=== PATIENT | male | born 1960 | race Caucasian/White ===

== ENCOUNTER → 2016-11-15 | Outpatient (CLI) | payer OTHER | LOC: FIMAGING 12:38 | DX: M25.532 Pain in left wrist (principal) ==

== ENCOUNTER → 2017-10-31 | Outpatient (CLI) | payer OTHER | LOC: BHFA 09:15 | PROVIDERS: ATTEND Internal Medicine Cardiovascular Disease | DX: I50.9 Heart failure, unspecified (principal) ==

== ENCOUNTER 2018-07-03 14:20 | Emergency (ER) | payer OTHER ==
[2018-07-03] MEDS ORDERED: SILVER NITRATE APPLICATOR 1 APPL TP ONE ×2 (14:46→14:55)
--- NOTE | 2018-07-03 14:46 | EDPHY ---
H & P Stated Complaint: CHIN WOUND/ ANTICOAGULATED Time Seen by Provider: 07/03/18 14:42 HPI/ROS: HPI: This is a 58-year-old male who presents with Chief Complaint: CHIN WOUND/ ANTICOAGULATED Location: Left side of chin Quality: Bleeding Duration: 2 and 0.5 hr Signs and Symptoms: no radiation, no numbness, no weakness, no tingling, no incontinence, no decreased range of motion, no swelling, no pain, no fever Timing: Acute Severity: Mild Context: Patient has a history of atrial fibrillation and takes Coumadin, presents with shaving in the shower when he accidentally nicked the left side of his chin. He reports that it has continued to bleed for the last 2 and 0.5 hr despite direct pressure. INR last week was 3.0. Patient asked to not have his INR checked again as he is scheduled to have it checked in 2 days. Denies LOC/head injury/neck pain/dizziness/nausea/vomiting/amnesia/shortness of breath/ chest pain/palpitations. Modifying Factors: Direct pressure no relief Comment: ROS: A comprehensive 10 system review of systems is otherwise negative aside from elements mentioned in the history of present illness. MEDICAL/SURGICAL/SOCIAL HISTORY: Medical history: CHF, DIABETES, A-FIB, BACK FX, SHARON-BIPAP at home, HTN, high cholesterol Surgical history: Denies Social history: Nonsmoker. CONSTITUTIONAL: Morbidly obese, white male, awake and alert, no obvious distress HEENT: normocephalic. 1/8 cm superficial cut on left side of chin that is oozing bright red blood. NECK: supple EXTREMITIES: 2/2 pulses, strength 5/5, no deformities, no clubbing, no cyanosis or edema. NEUROLOGICAL: no focal neuro deficits. GCS 15. Light touch sensation intact. SKIN: Warm and dry, no erythema. no rash. Good capillary refill. Source: Patient Exam Limitations: No limitations - Personal History Current Tetanus Diphtheria and Acellular Pertussis (TDAP): Yes Tetanus Vaccine Date: within 10 years - Medical/Surgical History Hx Asthma: Yes Hx Chronic Respiratory Disease: Yes Hx Diabetes: Yes Hx Cardiac Disease: Yes Hx Renal Disease: No Hx Cirrhosis: No Hx Alcoholism: No Hx HIV/AIDS: No Hx Splenectomy or Spleen Trauma: No Other PMH: CHF, DIABETES, A-FIB, BACK FX, SHARON-BIPAP at home, HTN, high cholesterol - Social History Smoking Status: Former smoker Constitutional: Initial Vital Signs Temperature (C) 37.1 C 07/03/18 14:24 Heart Rate 67 07/03/18 14:24 Respiratory Rate 16 07/03/18 14:24 Blood Pressure 139/71 H 07/03/18 14:24 O2 Sat (%) 93 07/03/18 14:24 O2 Delivery Mode Room Air Allergies/Adverse Reactions: amoxicillin [Amoxicillin] Allergy (Mild, Verified 05/16/16 10:00) Other-Enter Comments Home Medications: Medication Instructions Recorded Diltiazem HCl [Dilt-Xr] 360 mg PO DAILY 09/01/09 Furosemide [Lasix 40 MG (*)] 40 mg PO DAILY 09/01/09 Potassium Cl [Klor-Con 10 meq (RX)] 10 meq PO DAILY 09/01/09 Lisinopril [Zestril 40 mg (*)] 20 mg PO DAILY 05/01/10 Aspirin [Aspirin 81mg (*)] 81 mg PO DAILY 05/16/16 Cholecalciferol Vit D3 [Vitamin D3 1,000 units PO DAILY 05/16/16 (*)] Cyanocobalamin [Vitamin B12 (*)] 1,000 mcg PO DAILY 05/16/16 Hydrocodone/APAP 5/325 [[place] 1 - 2 tab PO Q6H PRN 05/16/16 5/325 (*)] Linagliptin [Tradjenta] 5 mg PO DAILY 05/16/16 Lovastatin 40 mg PO DAILY@18 05/16/16 Metformin HCl [Metformin 1000 mg] 1,000 mg PO BID 05/16/16 Warfarin Sodium [Coumadin 5MG (*)] 5 mg PO DAILY16 05/27/16 Medical Decision Making Procedures: Procedure: Chin bleeding control. After verbal consent was obtained, the patient was anesthetized with 3 mL of 1% lidocaine with epinephrine. The anterior epistaxis was identified. The patient was treated with silver nitrate x2. Following the procedure the patient was re-examined and the bleeding was well controlled. The patient tolerated the procedure well. The procedure was performed by myself. ED Course/Re-evaluation: Vital signs reviewed and stable upon arrival. Patient is asymptomatic. Local anesthesia provided with 1% lidocaine with epinephrine approximately 2 mL. Good hemostasis achieved with silver nitrate sticks x2 Verbal and written wound care instructions provided Monitored for 30 min without resolution of bleeding. This patient was seen under the supervision of my secondary supervising physician. I evaluated care for this patient independently. Discussed this patient with Dr. Garza. Differential Diagnosis: Differential diagnosis includes but is not limited to laceration, nerve injury, capillary injury, coagulopathy. Departure - Departure Disposition: Home, Routine, Self-Care Clinical Impression: Chronic anticoagulation Abrasion of chin Qualifiers: Encounter type: initial encounter Qualified Code(s): S00.81XA - Abrasion of other part of head, initial encounter Condition: Good Instructions: Abrasion (ED) Additional Instructions: Keep the area dry for 48 hours. After 48 hours, you're able to wash the site daily with mild soap and water; then pat dry. Keep appointment on Tuesday to have INR drawn. Referrals: Earline Alexander MD [Primary Care Provider] - As per Instructions
[2018-07-03 15:09] VITALS: BP 143/82
== END 2018-07-03 15:09 | disposition home or self-care (01) ==
DX: S00.81XA Abrasion of other part of head, initial encounter (principal); I48.91 Unspecified atrial fibrillation; E11.9 Type 2 diabetes mellitus without complications; Z79.01 Long term (current) use of anticoagulants; W26.8XXA Contact with other sharp object(s), not elsewhere classified, initial encounter; Y92.002 Bathroom of unspecified non-institutional (private) residence as the place of occurrence of the external cause; Y93.E1 Activity, personal bathing and showering

== ENCOUNTER 2018-12-10 13:24 | Inpatient (IN) | payer OTHER ==
[2018-12-10] MEDS ORDERED: NS 500 ML IV ONE ×2 (13:50→15:00)
--- NOTE | 2018-12-10 14:09 | EDPHY ---
H & P Time Seen by Provider: 12/10/18 13:50 HPI/ROS: HPI Lightheaded. Low blood pressure. 58-year-old male by private vehicle. This patient reports that over the last couple of days he has been feeling much more lightheaded with near-syncope especially after sitting and then standing. He reports that this is worse with exertion. He has a history of atrial fibrillation is anticoagulated with warfarin. He has a history of hypertension and takes both lisinopril and diltiazem. He is managed at [facility]. He tells me about a week ago his lisinopril dosing was cut in half. He states that he has been a little more short of breath with exertion. Denies any chest pain. ROS: Constitutional: No fever, no chills. As above. Eyes: No discharge. No changes in vision. ENT: No sore throat. No nasal congestion or rhinorrhea. Respiratory: No cough. As above. Cardiac: No chest pain, no palpitations. Gastrointestinal: No abdominal pain, no vomiting, no diarrhea. Genitourinary: No hematuria. No dysuria or increased frequency with urination. Musculoskeletal: No back pain. No neck pain. No myalgias or arthralgias. Skin: No rashes. Neurological: No headache. No focal weakness or altered sensation. Past medical history: CHF, diabetes, AFib, BiPAP at home, hypertension, hyperlipidemia, back fracture. Social history: Lives alone. Currently here by himself. Denies alcohol. Nonsmoker. Physical Exam: General Appearance: Alert, no distress. Obese habitus. This patient is responding to questions appropriately and in full sentences. This patient appears well-hydrated and well-nourished. Eyes: Pupils equal and round no pallor or injection. No lid edema, erythema or injection. Respiratory: There are no retractions, lungs are clear to auscultation with good air movement bilaterally. Cardiovascular: Regular rate and rhythm. No murmur. Gastrointestinal: Abdomen is soft and nontender, no masses, bowel sounds normal. No focal tenderness at McBurney's point. No Ferro sign. Neurological: Motor sensory function is grossly intact. Cranial nerves are normal. Gait is normal. Skin: Warm and dry, no rashes. Musculoskeletal: Neck is supple and nontender. Extremities are symmetrical. All joints range without pain or impingement. Psychiatric: No agitation. No depression. Database: EKG: EKG time is 1:58 p.m.: EKG shows a narrow complex atrial fibrillation with bradycardia in ventricular rate of 55. Low voltage is noted throughout. No ST, T-wave changes indicative of ischemic or injury pattern. Interpreted by me. Imaging: Chest x-ray AP portable: Hypoinflation. No pneumothorax. Cardiac mediastinal silhouette unremarkable. No acute cardiopulmonary disease process. Interpreted by me. Procedures: Emergency department course: IV was placed. The patient was placed on a special effects designer. He will be started on IV normal saline with 500 cc to be given over the next 30 min. EKG obtained and reviewed by myself. Triage vital signs were reviewed. On my initial evaluation, blood pressure is 95/64. financial reporting specialist shows a narrow complex atrial fibrillation with ventricular rate of 55. 2:45 p.m., the patient was re-evaluated, he is sitting upright on his gurney. He states that he still feels lightheaded when he stands up. Results of his diagnostic workup discussed with him. He has had 500 cc of IV normal saline and will be continued to a full L. I explained that we would admit him to the hospitalist service for further evaluation and management. He does live alone. I feel his presentation is secondary to over dosage on his diltiazem and lisinopril. Hospitalist paged. 3:00 p.m., spoke with on-call hospitalist Dr. Devin Patel. Case discussed in detail with him. The patient's remaining emergency department course under my care has been uneventful. Patient was admitted in stable condition to telemetry observation. Differential Diagnosis: The differential diagnosis on this patient includes but is not limited to hypotension secondary to antihypertensive medication, atrial fibrillation with bradycardia. This represents a partial list of diagnoses considered. These considerations are based on history, physical exam, past history, reassessment and diagnostic testing. Smoking Status: Former smoker Constitutional: Initial Vital Signs Temperature (C) 36.6 C 12/10/18 13:28 Heart Rate 65 12/10/18 13:28 Respiratory Rate 18 12/10/18 13:28 Blood Pressure 99/68 L 12/10/18 13:28 O2 Sat (%) 95 12/10/18 13:28 O2 Delivery Mode Room Air Allergies/Adverse Reactions: amoxicillin [Amoxicillin] Allergy (Mild, Verified 12/10/18 13:26) Other-Enter Comments Home Medications: Medication Instructions Recorded Diltiazem HCl [Dilt-Xr] 360 mg PO DAILY 09/01/09 Furosemide [Lasix 40 MG (*)] 40 mg PO DAILY 09/01/09 Potassium Cl [Klor-Con 10 meq (RX)] 10 meq PO DAILY 09/01/09 Lisinopril [Zestril 40 mg (*)] 20 mg PO DAILY 05/01/10 Aspirin [Aspirin 81mg (*)] 81 mg PO DAILY 05/16/16 Cholecalciferol Vit D3 [Vitamin D3 1,000 units PO DAILY 05/16/16 (*)] Cyanocobalamin [Vitamin B12 (*)] 1,000 mcg PO DAILY 05/16/16 Linagliptin [Tradjenta] 5 mg PO DAILY 05/16/16 Lovastatin 40 mg PO DAILY@18 05/16/16 Metformin HCl [Metformin 1000 mg] 1,000 mg PO BID 05/16/16 Warfarin Sodium [Coumadin 5MG (*)] 5 mg PO DAILY16 05/27/16 Medical Decision Making - Diagnostics Imaging Results: Imaging Impressions Chest X-Ray 12/10/18 14:05 Impression: 1. Cardiomegaly with mild pulmonary venous hypertension. 2. Limited radiographic technique. When clinically feasible, PA and lateral upright views in the department are suggested. - Data Points Laboratory Results: Laboratory Results 12/10/18 14:04 12/10/18 14:04 12/10/18 12/10/18 12/10/18 14:08 14:04 14:04 WBC RBC Hgb Hct MCV MCH MCHC RDW Plt Count MPV Neut % (Auto) Lymph % (Auto) [place] % (Auto) Eos % (Auto) Baso % (Auto) Nucleat RBC Rel Count Absolute Neuts (auto) Absolute Lymphs (auto) Absolute Monos (auto) Absolute Eos (auto) Absolute Basos (auto) Absolute Nucleated RBC Immature Gran % Immature Gran # PT 20.9 SEC H SEC (12.0-15.0) INR 1.90 H (0.83-1.16) APTT 34.3 SEC SEC (23.0-38.0) Sodium 136 mEq/L mEq/L (135-145) Potassium 5.2 mEq/L mEq/L (3.5-5.2) Chloride 106 mEq/L mEq/L (97-110) Carbon Dioxide 17 mEq/l L mEq/l (22-31) Anion Gap 13 mEq/L mEq/L (6-14) BUN 47 mg/dL H mg/dL (7-23) Creatinine 2.3 mg/dL H mg/dL (0.7-1.3) Estimated GFR 29 Glucose 96 mg/dL mg/dL (70-100) Calcium 9.6 mg/dL mg/dL (8.5-10.4) POC Troponin I 0.00 ng/mL ng/mL (0.00-0.08) TSH Pending Ethyl Alcohol < 10 mg/dL mg/dL (0-10) 12/10/18 14:04 WBC 9.41 10^3/uL 10^3/uL (3.80-9.50) RBC 3.70 10^6/uL L 10^6/uL (4.40-6.38) Hgb 12.7 g/dL L g/dL (13.7-17.5) Hct 36.2 % L % (40.0-51.0) MCV 97.8 fL fL (81.5-99.8) MCH 34.3 pg H pg (27.9-34.1) MCHC 35.1 g/dL g/dL (32.4-36.7) RDW 12.4 % % (11.5-15.2) Plt Count 208 10^3/uL 10^3/uL (150-400) MPV 10.3 fL fL (8.7-11.7) Neut % (Auto) 62.6 % % (39.3-74.2) Lymph % (Auto) 22.5 % % (15.0-45.0) [place] % (Auto) 9.1 % % (4.5-13.0) Eos % (Auto) 5.2 % % (0.6-7.6) Baso % (Auto) 0.4 % % (0.3-1.7) Nucleat RBC Rel Count 0.0 % % (0.0-0.2) Absolute Neuts (auto) 5.88 10^3/uL 10^3/uL (1.70-6.50) Absolute Lymphs (auto) 2.12 10^3/uL 10^3/uL (1.00-3.00) Absolute Monos (auto) 0.86 10^3/uL H 10^3/uL (0.30-0.80) Absolute Eos (auto) 0.49 10^3/uL H 10^3/uL (0.03-0.40) Absolute Basos (auto) 0.04 10^3/uL 10^3/uL (0.02-0.10) Absolute Nucleated RBC 0.00 10^3/uL 10^3/uL (0-0.01) Immature Gran % 0.2 % % (0.0-1.1) Immature Gran # 0.02 10^3/uL 10^3/uL (0.00-0.10) PT INR APTT Sodium Potassium Chloride Carbon Dioxide Anion Gap BUN Creatinine Estimated GFR Glucose Calcium POC Troponin I TSH Ethyl Alcohol Medications Given: Discontinued Medications Sodium Chloride (Ns) 500 mls @ 1,000 mls/hr IV EDNOW ONE PRN Reason: Protocol Stop: 12/10/18 14:19 Last Admin: 12/10/18 14:06 Dose: 500 mls Point of Care Test Results: Chemistry 12/10/18 14:08 POC Troponin I 0.00 ng/mL ng/mL (0.00-0.08) Departure - Departure Disposition: [facility] In[facility] Acute Clinical Impression: Hypotension, Atrial fibrillation, Bradycardia, Dehydration, Renal insufficiency Referrals: Earline Alexander MD [Primary Care Provider] - As per Instructions
[2018-12-10 14:17] LABS: PLATELET COUNT 208 10^3/uL (150-400)
[2018-12-10 14:26] LABS: INR 1.9 (0.83-1.16); PROTIME(PATIENT) 20.9 SEC (12.0-15.0)
[2018-12-10] MEDS ORDERED: ONDANSETRON 4 MG/2 ML VIAL IVP PRN (15:02)
[2018-12-10] MEDS ORDERED: ACETAMINOPHEN 325 MG TAB PO PRN (15:02)
[2018-12-10] MEDS ORDERED: ONDANSETRON DISINTEGRATING 4 MG TAB PO PRN (15:02)
[2018-12-10] MEDS ORDERED: NS 1,000 ML IV SCH (15:15)
--- NOTE | 2018-12-10 15:57 | PDGENHP ---
History and Physical - Chief Complaint Lightheadedness - History of Present Illness Rafael Mckeon is a 58 yo M with a PMHx of A Fib on Coumadin, CHF, DM, SHARON, HTN, HLD who presents to [facility] for presyncope. He reports that over the past week he has been feeling lightheaded with changing of positions from lying to sitting and sitting to standing. He noticed this when he was fishing and would stand feeling lightheaded and like he was going to pass out. He went to see [facility] for this last week who decreased his dose of Lisinopril from 40 to 20 mg. He denies any chest pain, SOB, d/c, f/c, edema, syncope, vision changes. He [facility] to the [facility] earlier today to have his BP checked and it was around 80 systolic. History Information - Allergies/Home Medication List Allergies/Adverse Reactions: amoxicillin [Amoxicillin] Allergy (Mild, Verified 12/10/18 13:26) Other-Enter Comments Home Medications: Diltiazem HCl [Dilt-Xr] 360 mg PO DAILY 09/01/09 [Last Taken 12/10/18] Furosemide [Lasix 40 MG (*)] 40 mg PO DAILY 09/01/09 [Last Taken 12/10/18] Potassium Cl [Klor-Con 10 meq (RX)] 10 meq PO DAILY 09/01/09 [Last Taken ] Lisinopril [Zestril 40 mg (*)] 20 mg PO DAILY 05/01/10 [Last Taken 12/10/18] Aspirin [Aspirin 81mg (*)] 81 mg PO DAILY 05/16/16 [Last Taken 12/10/18] Cholecalciferol Vit D3 [Vitamin D3 (*)] 1,000 units PO DAILY 05/16/16 [Last Taken 12/10/18] Cyanocobalamin [Vitamin B12 (*)] 1,000 mcg PO DAILY 05/16/16 [Last Taken ] Linagliptin [Tradjenta] 5 mg PO DAILY 05/16/16 [Last Taken 12/10/18] Lovastatin 40 mg PO DAILY 05/16/16 [Last Taken 12/10/18] Warfarin Sodium [Coumadin 5MG (*)] 7.5 mg PO DAILY 05/27/16 [Last Taken 12/10/18 ] Colchicine [Colchicine (*)] 0.6 mg PO DAILY 12/10/18 [Last Taken 12/10/18] metFORMIN HCL [Metformin HCl] 500 mg PO DAILY 12/10/18 [Last Taken 12/10/18] I have personally reviewed and updated: family history, medical history, social history, surgical history - Past Medical History atrial fibrillation, CHF, diabetes type 2, hypertension, hyperlipidemia - Surgical History Reports: no pertinent surgical hx - Family History Positive for: non-pertinent - Social History Smoking Status: Former smoker Review of Systems Review of Systems: ROS: 10pt was reviewed & negative except for what was stated in HPI & below Physical Exam Physical Exam: Temp Pulse Resp BP Pulse Ox 36.6 C 76 20 134/77 H 94 12/10/18 13:28 12/10/18 15:40 12/10/18 15:40 12/10/18 15:40 12/10/18 15:40 Constitutional: no apparent distress, obese Eyes: PERRL Ears, Nose, Mouth, Throat: dry mucous membranes Cardiovascular: irregularly irregular, No edema Respiratory: no respiratory distress Gastrointestinal: soft, non-tender abdomen Skin: warm Musculoskeletal: full muscle strength Neurologic: AAOx3 Psychiatric: interacting appropriately Lab Data & Imaging Review 12/10/18 14:04 12/10/18 14:04 WBC 9.41 10^3/uL (3.80-9.50) 12/10/18 14:04 RBC 3.70 10^6/uL (4.40-6.38) L 12/10/18 14:04 Hgb 12.7 g/dL (13.7-17.5) L 12/10/18 14:04 Hct 36.2 % (40.0-51.0) L 12/10/18 14:04 MCV 97.8 fL (81.5-99.8) 12/10/18 14:04 MCH 34.3 pg (27.9-34.1) H 12/10/18 14:04 MCHC 35.1 g/dL (32.4-36.7) 12/10/18 14:04 RDW 12.4 % (11.5-15.2) 12/10/18 14:04 Plt Count 208 10^3/uL (150-400) 12/10/18 14:04 MPV 10.3 fL (8.7-11.7) 12/10/18 14:04 Neut % (Auto) 62.6 % (39.3-74.2) 12/10/18 14:04 Lymph % (Auto) 22.5 % (15.0-45.0) 12/10/18 14:04 [place] % (Auto) 9.1 % (4.5-13.0) 12/10/18 14:04 Eos % (Auto) 5.2 % (0.6-7.6) 12/10/18 14:04 Baso % (Auto) 0.4 % (0.3-1.7) 12/10/18 14:04 Nucleat RBC Rel Count 0.0 % (0.0-0.2) 12/10/18 14:04 Absolute Neuts (auto) 5.88 10^3/uL (1.70-6.50) 12/10/18 14:04 Absolute Lymphs (auto) 2.12 10^3/uL (1.00-3.00) 12/10/18 14:04 Absolute Monos (auto) 0.86 10^3/uL (0.30-0.80) H 12/10/18 14:04 Absolute Eos (auto) 0.49 10^3/uL (0.03-0.40) H 12/10/18 14:04 Absolute Basos (auto) 0.04 10^3/uL (0.02-0.10) 12/10/18 14:04 Absolute Nucleated RBC 0.00 10^3/uL (0-0.01) 12/10/18 14:04 Immature Gran % 0.2 % (0.0-1.1) 12/10/18 14:04 Immature Gran # 0.02 10^3/uL (0.00-0.10) 12/10/18 14:04 PT 20.9 SEC (12.0-15.0) H 12/10/18 14:04 INR 1.90 (0.83-1.16) H 12/10/18 14:04 APTT 34.3 SEC (23.0-38.0) 12/10/18 14:04 Sodium 136 mEq/L (135-145) 12/10/18 14:04 Potassium 5.2 mEq/L (3.5-5.2) 12/10/18 14:04 Chloride 106 mEq/L (97-110) 12/10/18 14:04 Carbon Dioxide 17 mEq/l (22-31) L 12/10/18 14:04 Anion Gap 13 mEq/L (6-14) 12/10/18 14:04 BUN 47 mg/dL (7-23) H 12/10/18 14:04 Creatinine 2.3 mg/dL (0.7-1.3) H 12/10/18 14:04 Estimated GFR 29 12/10/18 14:04 Glucose 96 mg/dL (70-100) 12/10/18 14:04 Calcium 9.6 mg/dL (8.5-10.4) 12/10/18 14:04 POC Troponin I 0.00 ng/mL (0.00-0.08) 12/10/18 14:08 TSH 0.687 uIU/mL (0.465-4.680) 12/10/18 14:04 Ethyl Alcohol < 10 mg/dL (0-10) 12/10/18 14:04 Assessment & Plan Assessment: Presyncope - Occurring for past week - In the setting of hypotension, on multiple anti-hypertensive and miguel- blocking agents including Diltiazem 306 mg qd, Lasix 40 mg qd, Lisinopril 20 mg - S/p 500 cc bolus in ED x2, will continue mIVF @ 100 ml for next 12 hours - Will check orthostatic VS although after 1L in ED - HR 50-60's on admission, will decrease Diltiazem 360 to 240 mg qd, continue to monitor HR - Will decrease Lisinopril 20 to 10 mg qd - Will hold home Lasix for now - Continue titration of above medications SHERIE - BUN/Cr 47/2.3 on admission in setting of presyncope - Pt reports he was recommended to see cotton expert by PCP in the past - Last Cr in 2016 0.9 - Will order FEUrea to further evaluate - IVF and med changes as above - Continue to monitor BMP, I/O, avoid nephrotoxic agents Bradycardia - Noted on admission - EKG showing A Fib with HR 50's - Will decrease home diltiazem as above - Continue to monitor on telemetry Atrial fibrillation (Acute) - Bradycardia as above - Continue home Coumadin, INR 1.9 on admission, repeat in the AM HTN - Mediation changes as above T2DM - Continue home medications other than metformin upon med rec - SSI ordered as IP Obesity - Counseled on weight loss SHARON - Will order BiPAP as IP Gout - Will hold colchicine in setting of SHERIE (possible CKD, unknown recent baseline) CHF - Appears hypovolemic - Holding home Lasix for now, restart likely tomorrow - Decreasing Lisinopril as above FEN: Cardiac diet DVT PPx: On Coumadin Code: FULL Dispo: Admit to Observation
[2018-12-10] MEDS ORDERED: D50W 25 GM/50 ML SYR IVP PRN (16:09)
[2018-12-10] MEDS: INSULIN LISPRO 100 UNIT/ML SC SCH (17:40)
--- NOTE | 2018-12-10 20:57 | CPEKG ---
Test Reason : OPEN Blood Pressure : / mmHG Vent. Rate : 055 BPM Atrial Rate : 000 BPM P-R Int : 236 ms QRS Dur : 105 ms QT Int : 427 ms P-R-T Axes : 000 038 048 degrees QTc Int : 409 ms Atrial fibrillation Low voltage, precordial leads Confirmed by Matthieu Lebron ([id number]) on 12/10/2018 8:57:02 PM Referred By: Matthieu Lebron Confirmed By:Matthieu Lebron
[2018-12-11 04:45] LABS: INR 2.01 (0.83-1.16); PROTIME(PATIENT) 21.8 SEC (12.0-15.0)
[2018-12-11] MEDS: INSULIN LISPRO 100 UNIT/ML SC SCH ×3 (08:03→18:01)
[2018-12-11] MEDS: DILTIAZEM XR 240 MG CAP PO SCH (08:16)
[2018-12-11] MEDS: ASPIRIN 81 MG CHEWABLE TAB PO SCH (08:16)
[2018-12-11] MEDS: PRAVASTATIN SODIUM 40 MG TAB PO SCH (08:16)
[2018-12-11] MEDS: WARFARIN SODIUM 5 MG TAB PO SCH (08:17)
[2018-12-11] MEDS ORDERED: LISINOPRIL 40 MG TAB PO SCH (09:00)
[2018-12-11] MEDS ORDERED: (Linagliptin [Tradjenta] 5 MG) PO SCH (09:00)
[2018-12-11] MEDS ORDERED: hydrALAZINE 25 MG TAB PO PRN (14:53)
--- NOTE | 2018-12-11 14:59 | HOSPPROG ---
Hospitalist Progress Note Assessment/Plan: Presyncope - likely 2/2 hypotension in setting of multiple anti-hypertensives, improved SHERIE - Cr 2.3 --> 2.0 with IVF's overnight. FeNa 0.3 suggesting pre-renal etiology. Suspect poor perfusion with hypotension and overdiuresis. -cont to hold lasix -hold lonnie -trend, will obtain renal u/s if Cr not improving tomorrow Atrial fibrillation - rate controlled with diltiazem (possibly over-controlled with low HR on arrival) -continue lower dilt dose, could change to coreg for better BP control if BP on the rise -pharmacy to dose coumadin, INR therapeutic today at 2 HTN - His bp may be better since he quit heavy etoh use 4 weeks ago and therefore has lower anti-hypertensive needs. -Continue diltiazem, holding lasix for now -holding lonnie due to SHERIE -prn hydralazine for sbp >160 -likely resume lasix in am Chronic HF - holding Lasix today, likely resume in am, may need lower dose due to concern for overdiuresis -check bnp in am T2DM - hold MTF with SHERIE, SSI for now Obesity SHARON - cont bipap Gout - holding colchicine with SHERIE FEN: Cardiac diet DVT PPx: On Coumadin Code: FULL Dispo: change to inpt for ongoing management of SHERIE Subjective: Pt feels much better. No more dizziness. No CP or SOB. Good uop. Taking po well. Objective: Vital Signs Temp Pulse Resp BP Pulse Ox 36.4 C 79 19 159/94 H 98 12/11/18 11:44 12/11/18 11:44 12/11/18 11:44 12/11/18 11:44 12/11/18 11:44 Laboratory Results 12/11/18 03:34 12/10/18 12/11/18 12/12/18 05:59 05:59 05:59 Intake Total 3050 500 Output Total 2750 650 Balance 300 -150 PT 21.8 SEC (12.0-15.0) H 12/11/18 03:34 INR 2.01 (0.83-1.16) H 12/11/18 03:34 - Physical Exam Constitutional: no apparent distress Eyes: PERRL Ears, Nose, Mouth, Throat: moist mucous membranes Cardiovascular: regular rate and rhythym Respiratory: no respiratory distress, clear to auscultation Gastrointestinal: normoactive bowel sounds, soft, non-tender abdomen Skin: warm Musculoskeletal: full muscle strength Neurologic: AAOx3 Psychiatric: interacting appropriately ICD10 Worksheet Patient Problems: Problems Problem Status Onset Atrial fibrillation Acute Bradycardia Acute Dehydration Acute Hypotension Acute Renal insufficiency Acute Peritonsillar abscess Acute
--- NOTE | 2018-12-11 15:20 | ASMTCMCOM ---
CM Note CM Note Notes: Pts case discussed in tx rounds. Pt is a 58 y/o man admitted for bradycardia, afib and hypotension. OT has cleared pt to d/c without any needs. PT is still pending. Anticipate that pt will be independent. CM available for changes. Plan: Independent Date Signed: 12/11/2018 02:07 PM Electronically Signed By:JANETT Lopez
--- NOTE | 2018-12-11 15:29 | PDMN ---
Medical Necessity Medical necessity: [facility] [id number] ARF, 3 days: 58 yo w/ presyncope s/sx. Eval reveals pt is hypotensive on multi anti hypertensives, pt is bradycardic HR 50s , and w/ SHERIE Cr 2.3 (baseline from 2016 0.9). Initially OBS for fluid resusc, monitoring. VS improved overnight but pt still with SHERIE, Cr 2, requiring additional MN for ongoing monitoring, dx testing and tx. Renal U/S if no improvement. Change to IP status 12/11/18@1459 per MD order. Hx afib on Coumadin , CHF, DM2, HTN, HLD, obesity
[2018-12-11] MEDS: CLOTRIMAZOLE 1% 15 GM CRTUBE TP SCH ×2 (18:41→21:15)
[2018-12-12 04:50] LABS: INR 1.91 (0.83-1.16)
[2018-12-12] MEDS ORDERED: FUROSEMIDE 40 MG TAB PO SCH (09:00)
[2018-12-12] MEDS ORDERED: (Linagliptin [Tradjenta] 5 MG) PO SCH (09:00)
[2018-12-12] MEDS ORDERED: WARFARIN SODIUM 5 MG TAB PO ONE (09:45)
[2018-12-12] MEDS: PRAVASTATIN SODIUM 40 MG TAB PO SCH (09:49)
[2018-12-12] MEDS: DILTIAZEM XR 240 MG CAP PO SCH (09:49)
[2018-12-12] MEDS: INSULIN LISPRO 100 UNIT/ML SC SCH (09:49)
[2018-12-12] MEDS: ASPIRIN 81 MG CHEWABLE TAB PO SCH (09:52)
[2018-12-12] MEDS: CLOTRIMAZOLE 1% 15 GM CRTUBE TP SCH (09:54)
[2018-12-12 09:57] VITALS: BP 142/78
[2018-12-12] MEDS: WARFARIN SODIUM 5 MG TAB PO SCH (09:58)
--- NOTE | 2018-12-12 17:22 | GDS ---
[f rep st] DISCHARGE SUMMARY DISCHARGE DIAGNOSES: 1. Presyncope. 2. Acute kidney injury. 3. Atrial fibrillation. 4. Hypertension. 5. Chronic heart failure. 6. Type 2 diabetes. 7. Obesity. 8. Obstructive sleep apnea. 9. Gout. CONSULTANTS: None. HISTORY OF DETAILS: Please see history and physical dated December 10, 2018. In brief, the patient is a 58-year-old male with multiple medical problems, who presented to the emergency department feeling l ightheaded. He reports he had been checking his blood pressure at the [facility] and found it to be 80 systolic. At this point, he presented to the emergency department for further evaluation. Dena p in the ER revealed an elevated creatinine of 2.3. He was admitted to the hospital for further jennifer gement. HOSPITAL COURSE: The patient was admitted to the cardiac telemetry unit. He notes he stopped drinki ng a half a handle of vodka a day about 4 or 5 weeks ago. I suspect that his antihypertensive needs have decreased as he has excluded alcohol from his daily routine. He has likely been overtreated and hypotensive contributing to hypoperfusion of his kidneys. His lisinopril was held in the setting of acute kidney injury. In addition, his Lasix was held. He was also found to be slightly bradycardia c and his diltiazem dose was decreased from 360 mg daily to 240 mg daily. He received IV fluids init ially and his creatinine trended down from 2.3 to 1.6. I think it is safe for him to resume his Lasi x at this point, but I will continue to hold his lisinopril until it is clear he has complete resolut ion of his acute kidney injury. His blood pressures actually have been fairly well controlled withou t lisinopril running in the 120s over 60s and his discharge blood pressure is 142/78. In addition, h is metformin was held. I recommend he continue to hold this until his creatinine has come down below 1.5 and reliably stays there. DISPOSITION: Patient is discharged home in stable condition. FOLLOWUP: Dr. [facility] in 2 to 3 days for repeat blood pressure and repeat bas ic metabolic panel. At that point, it can be determined if he should resume his lisinopril and metfo rmin. DISCHARGE MEDICATIONS: Please see [facility] for completed medication list. Changed medications on keith kebede, his diltiazem was decreased from 360 to 240 p.o. daily, #30, no refills. Lisinopril was hel d. Metformin is held. He will continue all other outpatient medications as previously prescribed in cluding Lasix 40 mg p.o. daily. Potassium 10 mEq p.o. daily. Aspirin 81 mg p.o. daily. Tradjenta 5 mg p.o. daily. Lovastatin 40 mg p.o. daily. Vitamin B12. Warfarin 7.5 mg p.o. daily. Colchicine 0.6 mg p.o. daily. /[id number]/MODL
[2018-12-13] MEDS ORDERED: WARFARIN SODIUM 5 MG TAB PO SCH (09:00)
== END 2018-12-12 11:07 | disposition home or self-care (01) | DRG 684 ==
LOC: F2W 16:07 → OBSVTOIN 12-11 14:59
PROVIDERS: ADMIT Internal Medicine; ATTEND Internal Medicine
DX: N17.9 Acute kidney failure, unspecified (principal); I95.2 Hypotension due to drugs; T46.5X5A Adverse effect of other antihypertensive drugs, initial encounter; E86.9 Volume depletion, unspecified; I48.91 Unspecified atrial fibrillation; I11.0 Hypertensive heart disease with heart failure; I50.9 Heart failure, unspecified; E11.9 Type 2 diabetes mellitus without complications; E66.9 Obesity, unspecified; G47.33 Obstructive sleep apnea (adult) (pediatric); M10.9 Gout, unspecified; Z79.01 Long term (current) use of anticoagulants
CPT/HCPCS: 84484-ER; 97161-GP; 97165-GO; G0378; G0480; J1815